=== PATIENT | male | born 1945 | race Two or more races ===

== ENCOUNTER 2020-03-14 17:59 | Emergency (ER) | payer MEDICARE, MEDICAID ==
[~2020-03-14] VITALS: Ht 157.5 cm; Wt 62.1 kg
[2020-03-14] MEDS ORDERED: cefTRIAXone SOD 1,000 MG VL IM ONE (20:45)
[2020-03-14] MEDS ORDERED: TETANUS-DIPTH-ACEL PERTUSSIS 0.5ML SYR Tdap IM ONE (20:45)
[2020-03-14 21:17] VITALS: BP 141/87
[2020-03-14] MEDS ORDERED: LIDOCAINE 1% HCL (LOCAL ANESTH.) INJ 20ML MDV IJ ONE (22:45)
== END 2020-03-14 23:30 | disposition home or self-care (01) ==
LOC: ER 17:59
DX: S61.451A Open bite of right hand, initial encounter (principal); S61.452A Open bite of left hand, initial encounter; S61.432A Puncture wound without foreign body of left hand, initial encounter; S61.431A Puncture wound without foreign body of right hand, initial encounter; S61.411A Laceration without foreign body of right hand, initial encounter; W57.XXXA Bitten or stung by nonvenomous insect and other nonvenomous arthropods, initial encounter; Y93.89 Activity, other specified; Y92.89 Other specified places as the place of occurrence of the external cause; Y99.8 Other external cause status
CPT/HCPCS: 12002; 82962; 90471; 90715; 96372; 99284; J0696; J2001